=== PATIENT | female | born 1935 | race Caucasian/White ===

== ENCOUNTER → 2018-04-03 | Day surgery (SDC) | payer MEDICARE ==
[~2018-04-03] VITALS: Ht 162.6 cm; Wt 131.8 kg
[2018-04-03] VITALS (28 sets, daily range): BP systolic 104–175; BP diastolic 38–69; PULSE 52–77; RESP 9–25; Ht 162.6 cm; Wt 131.8 kg
[~2018-04-03] MED LIST: ACET-2047 PO; ACETAMINOPHEN 1000MG/100ML IV 100 ML IVPB ONE; ALBUTEROL 0.083% (NEB) 2.5 MG/3 ML AMP HHN PRN; AMLO5TAB4 PO; ASPI81TA52 PO; ATOR-2 PO; ATROPINE 1 MG/10 ML SYRINGE IV PRN; BUPIVACAINE 0.5%/EPI (SDV) 30 ML INJ ONE; BUPIVACAINE LIPOSOME/PF 266 MG/20 ML VIAL INFIL SCH; CEFAZOLIN 1 GM INJ ONE; CEFD300C2 PO; CHLO25TA2 PO; DICL100G37 TOP; DIPHENHYDRAMINE 50 MG INJ IV PRN; DOCU-144 PO; EPHEDrine SULFATE 50 MG/5 ML SYG IV PRN; ESCI20TA PO; FAMOTIDINE 20 MG INJ ONE; FENTAnyl 50 MCG/ML VIAL IV PRN; FENTAnyl 50 MCG/ML VIAL ONE; FURO40TA4 PO; GABA300C16 PO; GLIM2TAB PO; HYDR-3672 PO; HYDROCODONE/APAP (5/325) TAB PO PRN; HYDROmorphONE 1 MG/5 ML IV SYRINGE IV PRN; LABETALOL HCL 20MG INJ IV PRN; LIDOCAINE 2% (SDV) 5 ML INJ ONE; MAGN400O19 PO; MELA5TAB4 PO; MENT70.8 TP; MEPERIDINE 25 MG INJ IV PRN; NEOMYC/POLYMYX/BACIT 30 GM OINT ONE; NITROGLYCERIN 2% 1 GM OINT PKT TD SCH; NYST1POW22 TOPICAL; OLME20TA20 PO; OMEP40CA6 PO; ONDANSETRON 4 MG INJ IV PRN; ONDANSETRON 4 MG INJ ONE; OXYB5TAB22 PO; POLY17PO6 PO; POTA10TA37 PO; PROC10TA10 PO; PROPOFOL 20 ML ONE; SEVOFLURANE 15 MIN ONE; SITA100T11 PO; SOD CHLORIDE 0.9% 1,000 ML IV ONE; TRAM50TA PO; hydrALAzine 20 MG INJ IV PRN; morphine 2 MG INJ IV PRN
--- NOTE | 2018-04-03 10:04 | PREAC ---
Date/Time of Note Date/Time of Note DATE: 04/03/18 TIME: 09:57 Anesthesia Eval and Record Evaluation Time Pre-Procedure Interview DATE: 04/03/18 TIME: 09:57 Age 83 Sex female NPO: 8 hrs Preoperative diagnosis R cheek melanoma Planned procedure R cheek melanoma excision and flap reconstruction Past Medical History Past Medical History: Includes (breast CA hx) Cardio: HTN, Dyslipidemia, CABG Endo: Diabetes Pulm: Sleep Apnea GI: Morbid obesity Surgery & Anesthesia Issues Hx of difficult intubation Meds Anticoagulation: No Beta Ben within 24 hr: No Reason Beta Ben not given: Pt. not on B-Ben Reported Medications Acetaminophen* (Acetaminophen*) 650 Mg Tablet, 650 MG PO Q4 PRN for PAIN LEVEL 1-5, #30 TAB 04/03/18 Tramadol Hcl* (Ultram*) 50 Mg Tablet, 50 MG PO Q6H PRN for MODERATE PAIN LEVEL 4-6, TAB 04/03/18 Sitagliptin* (Januvia*) 100 Mg Tablet, 100 MG PO DAILY, #30 TAB 04/03/18 Prochlorperazine* (Prochlorperazine*) 10 Mg Tablet, 10 MG PO Q8 PRN for NAUSEA, TAB 04/03/18 Potassium Chloride* (K-Dur*) 10 Meq Tab.prt.sr, 10 MEQ PO DAILY, TAB 04/03/18 Polyethylene Glycol* (Miralax*) 17 Gm Powd.pack, 17 GM PO DAILY, #30 PACKET 04/03/18 Oxybutynin Chloride* (Ditropan* XL) 5 Mg Tabsr, 5 MG PO DAILY, TAB.SA 04/03/18 Omeprazole* (Omeprazole*) 40 Mg Capsule.dr, 40 MG PO DAILY, #30 CAP 04/03/18 Olmesartan Medoxomil (Benicar) 20 Mg Tablet, 20 MG PO DAILY, #30 TAB HOLD IF SBP<110 04/03/18 Nystatin (Nystatin Powder) 1 Each Powder.ea., 1 APPLIC TOPICAL DAILY, #1 BOTTLE APPLY TO ABDOMINAL FOLD 04/03/18 Melatonin (Melatonin) 5 Mg Tablet, 5 MG PO HS, TAB 04/03/18 Magnesium Hydroxide* (Milk Of Magnesia*) 400 Mg/5 Ml Oral.susp, 30 ML PO DAILY PRN for CONSTIPATION, ML 04/03/18 Menthol (Icy Hot Pain Relieving) 70.8 Gm Gel..gm., 70.8 GM TP Q6 PRN for PAIN 04/03/18 Hydralazine Hcl* (Hydralazine Hcl*) 50 Mg Tab, 50 MG PO TID PRN for ELEVATED BLOOD PRESSURE, #60 TAB HOLD IF SBP < 110 04/03/18 Diclofenac Sodium* (Voltaren* Gel) 1% -100 Gm Gel, 4 GM TOP QID, #1 TUB 04/03/18 Docusate Sodium* (Colace*) 100 Mg Capsule, 100 MG PO DAILY, #30 CAP 04/03/18 Escitalopram Oxalate* (Lexapro*) 20 Mg Tablet, 20 MG PO DAILY, #30 TAB 04/03/18 Furosemide* (Furosemide*) 40 Mg Tablet, 40 MG PO DAILY, TAB 04/03/18 Gabapentin* (Gabapentin*) 300 Mg Capsule, 300 MG PO TID, #90 CAP 04/03/18 Glimepiride* (Glimepiride*) 2 Mg Tablet, 2 MG PO WITH BREAKFAST, TAB 04/03/18 Chlorthalidone* (Chlorthalidone*) 25 Mg Tablet, 25 MG PO DAILY, TAB 04/03/18 Cefdinir (Cefdinir) 300 Mg Capsule, 300 MG PO BID, #60 CAP END DATE 04-07-18 04/03/18 Atorvastatin* (Atorvastatin*) 80 Mg Tablet, 80 MG PO QHS, #30 TAB 04/03/18 Aspirin (Low Dose Aspirin) 81 Mg Tablet.dr, 81 MG PO DAILY, #30 TAB 04/03/18 Amlodipine Besylate* (Norvasc*) 5 Mg Tablet, 5 MG PO DAILY, TAB 04/03/18 Meds reviewed: Yes Allergies Coded Allergies: Latex, Natural Rubber (Verified Allergy, Unknown, 04/03/18) codeine (Verified Allergy, Unknown, 04/03/18) moxifloxacin (Verified Allergy, Unknown, 04/03/18) Uncoded Allergies: DUST (Allergy, Unknown, HIVES, 04/03/18) Allergies Reviewed: Yes Labs/Studies Labs Reviewed: Reviewed by anesthesiologist abnormal labs H&h 11.134, BUN 28 Creat 1, Gluc 154 test: N/A Studies: ECG (SB, Left axis deviation, RBBB, L ventricular hyptertophy, t wav abnormal), CXR (1. Cardiomegaly with mild vascular congestion and early interstitial edema. No acute air space process identified. Aortic atherosclerosis.), Other (pending lower extremity US r/o DVT) Pre-procedure Exam Last vitals Vital Signs Date Temp Pulse Resp B/P (MAP) Pulse Ox O2 O2 Flow FiO2 Time Delivery Rate 04/03/18 97.7 54 18 119/59 91 Room Air 09:11 (79) Airway: Adequate mouth opening, Adequate thyromental dist Mallampati: Mallampati III Teeth: Normal Lung: Normal Heart: Normal ASA Physical Status ASA physical status: 3 Emergency: None Planned Anesthetic General/MAC: MAC Pre-operative Attestations Prior to commencing anesthesia and surgery, the patient was re-evaluated, there was verification of: *The patient's identity *The results of appropriate recent lab work and preoperative vital signs *The above evaluation not changing prior to induction *Anesthetic plan, risk benefits, alternative and complications discussed with patient/family; questions answered; patient/family understands, accepts and wishes to proceed. LEXI BENSON Apr 03, 2018 10:04
--- NOTE | 2018-04-03 10:43 | HPN ---
Date/Time of Note Date/Time of Note DATE: 04/03/18 TIME: 10:39 Interval H&P Admission Note Pt. seen H&P reviewed: No system changes MIN MARROQUIN MD Apr 03, 2018 10:43
--- NOTE | 2018-04-03 13:05 | OPR ---
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 The risks, benefits, alternatives of performing this procedure were discussed with the patient including the risks of bleeding, infection, wound healing problems, distortion of surrounding structures, nerve damage, changes in sensation, need for re vision, and the patient states that they understand these risks and would like to proceed with the procedure. All questions were answered, no guarantees were given with regards to the outcome of this procedure. Description of procedure: The patient was brought to the operating room at [facility] where general anesthesia was induced and she was prepped and draped in usual sterile fashion. 5 mm to 1 cm margins were marked around the circumference of the lesion. An anterior dog ear was marked as well. A planned flap was marked along the posterior border extending along the temporal hairline to the pre-tragal line into the neck. 7 cc of 0.5% Marcaine with 1: 200,000 epinephrine were injected into the planned incision site. 10 cc of Exparel were injected into the deep tissues as a nerve block in the cheek and in the mandible. The incision was then made around the lesion with the 10 blade and the lesion was excised from the base of the cheek using the electrocautery. This was done in the subcutaneous tissue at the level of the SMAS. A short stitch was marked superior a long stitch was marked lateral. Size of the excision specimen was 9x6cm. This was sent for pathology. Hemostasis was achieved with electrocautery. The lesion was inspected and due to its size, there was no way to close it primarily. Therefore a Mustarde type rotation advancement flap was marked and was then incised with the 10 blade along the posterior incision line. The flap was then elevated with the electrocautery at the junction of the subcutaneous tissue and the SMAS. Dissection proceeded inferiorly until the flap was elevated down to the border of the mandible. Hemostasis was achieved with electrocautery. The leading edge of the flap was then undermined for a short distance with the electrocautery to help reduce tension on the closure. The posterior edge of the donor site was then undermined with electrocautery as well. Next the anterior portion of the flap was advanced into position where it sat in place without undue tension. A back cut was then made to facilitate advancement and reduce tension on the donor site. A portion of the superior flap was marked for excision and this was done with the scissors. The flap was observed to be bleeding from its distal tip. Therefore a final round of hemostasis was carried out, and the wound was irrigated with saline. Next, with a 3-0 PDS suture was used to tack the central portion of the flap to the deep maxillary tissue to help reduce tension on the tip. The flap was then inset with a deep layer of 4-0 Vicryl sutures followed by 5-0 nylon suture. The flap appeared to be well perfused after inset and a small amount of Nitropaste was applied to the distal tip to help reduce the risk of venous congestion. The patient tolerated procedure well, there were no complications, follow-up information and wound care instructions were given, flap size was 11 x 12 cm. Due to the size of the flap and location of the defect, it was necessary to have a skilled certified medical technician assistant present and assisting throughout the entirety of this procedure so that four hands could work simultaneously. BETY Barker assisted with this procedure.. Preoperative Diagnosis right cheek melanoma in situ Postoperative Diagnosis same Operation/Procedure Performed excision of right cheek melanoma in situ and flap reconstruction Surgeon see signature line Tractor Mechanic Helper BETY barker Anesthesia Type: general Estimated Blood Loss: minimal Transfusion none Specimen to pathology Grafts/Implants none Complications none Procedure Description see dictation MIN MARROQUIN MD Apr 03, 2018 13:05
--- NOTE | 2018-04-03 13:09 | NUR ---
PACU: Received patient in pacu via [employer] [facility] HOB @ semi carpio position breathing with ease, facial dressing dry & intact no facial grimacing denies pain at this time, will continue to monitor.
--- NOTE | 2018-04-03 15:59 | NUR ---
PACU : Transferred patient to [facility] via [facility], patient said she is very tired, had sleep Apnea ,wants to stay over night, saturation goes down , called Dr. Tay and asked him if patient can stay over night for observation, said, patient has to go home today, gave HNN and ofirmev 1 gram for pain, do plenty of practice breathing on incentive spirometer , stimulated to wake her up, reinforced dressing on the lower part of right ear, also called daughter x2 over the phone given her updates. Report given to ROBERT Soler
--- NOTE | 2018-04-03 16:38 | NUR ---
PT WITH DRESSING ON HEAD/R CHEEK DRY AND INTACT, REINFORCED BECAUSE IT WAS LOOSE. REPORT GIVEN TO EDNA AT [facility] [phone]. DAUGHTER ASKING ABOUT ADDITIONAL PAIN MEDICATIONS AND DRESSING CHANGES. ENDORSED TO [facility]. NURSE PROVIDED WITH 'S PHONE NUMBER AND INSTRUCTIONS. PT AND DAUGHTER AWARE. DISCHARGED BY VOLUNTEER ON OWN WHEELCHAIR [facility]IA [facility] ACCOMPANIED BY DAUGHTER.
--- NOTE | 2018-04-03 17:41 | PAC ---
Date/Time of Note Date/Time of Note DATE: 04/03/18 TIME: 17:41 Post-Anesthesia Notes Post-Anesthesia Note Last documented vital signs Vital Signs Date Temp Pulse Resp B/P (MAP) Pulse Ox O2 O2 Flow FiO2 Time Delivery Rate 04/03/18 98.1 56 16 106/54 Room Air 15:57 (71) 56 04/03/18 98 15:49 04/03/18 21 15:39 04/03/18 3.0 14:09 Activity: WNL Respiratory function: WNL Cardiovascular function: WNL Mental status: Baseline Pain reasonably controlled: Yes Hydration appropriate: Yes Nausea/Vomiting absent: Yes LEVI EDGE MD Apr 03, 2018 17:41
--- NOTE | 2018-04-04 19:38 | RADRPT ---
Vent Rate: 56 bpm RR Interval: 0 msec WI Interval: 180 msec QRS Duration: 162 msec QT Interval: 520 msec QTC Interval: 501 msec P-R-T [place]: 48 - -38 - 0 degrees Sinus bradycardia Left axis deviation Right bundle branch block Voltage criteria for left ventricular hypertrophy T wave abnormality, consider lateral ischemia Abnormal ECG Electronically Signed By: Ulises Saenz [id number]
== END | disposition home or self-care (01) ==
LOC: SDS 07:48
PROVIDERS: ATTEND Surgery Plastic and Reconstructive Surgery
DX: D03.39 Melanoma in situ of other parts of face (principal); C76.0 Malignant neoplasm of head, face and neck; I10 Essential (primary) hypertension; E78.00 Pure hypercholesterolemia, unspecified; E11.9 Type 2 diabetes mellitus without complications; Z86.718 Personal history of other venous thrombosis and embolism
CPT/HCPCS: 14040; 71045; 82962; 88305; 93005; 93970; 94640; 94664; C9290; J0131; J0690; J2175; J2405; J3010